=== PATIENT | male | born 1945 | race Caucasian/White ===

== ENCOUNTER 2018-10-14 14:15 | Outpatient (CLI) | payer OTHER | END 2018-10-14 14:30 | disposition home or self-care (01) | LOC: RAD 14:15 | DX: S83.511A Sprain of anterior cruciate ligament of right knee, initial encounter (principal); M25.561 Pain in right knee; M25.562 Pain in left knee ==

== ENCOUNTER 2019-05-30 12:00 | Outpatient (CLI) | payer OTHER | END 2019-05-30 12:08 | disposition home or self-care (01) | LOC: RAD 12:00 | DX: I11.9 Hypertensive heart disease without heart failure (principal) ==

== ENCOUNTER 2019-06-12 16:29 | Emergency (ER) | payer OTHER ==
[~2019-06-12] VITALS: Ht 170.2 cm; Wt 74.4 kg
[2019-06-12] MEDS ORDERED: PROPAFENONE (17:13)
[2019-06-12] MEDS ORDERED: TRILIPIX45 MG (17:13)
[2019-06-12] MEDS ORDERED: ATACAND32 MG (17:13)
[2019-06-12] MEDS ORDERED: [UNRECOGNIZED DRUG - OTHER] (17:13)
[2019-06-12] MEDS ORDERED: TOPROL XL25 M1 (17:13)
[2019-06-12] MEDS ORDERED: TAMS0.4C (17:14)
[2019-06-12] MEDS ORDERED: SYNTHROID75 MCG (17:14)
== END 2019-06-12 18:11 | disposition home or self-care (01) ==
LOC: ER 16:29
DX: S30.871A Other superficial bite of abdominal wall, initial encounter (principal); W54.0XXA Bitten by dog, initial encounter; Y93.89 Activity, other specified; Y92.89 Other specified places as the place of occurrence of the external cause; Y99.8 Other external cause status

== ENCOUNTER → 2019-06-29 | Outpatient (CLI) | payer OTHER ==
[~2019-06-29] MED LIST: ATACAND32 MG; PROPAFENONE; SYNTHROID75 MCG; TAMS0.4C; TOPROL XL25 M1; TRILIPIX45 MG; [UNRECOGNIZED DRUG - OTHER]
== END | disposition home or self-care (01) ==
LOC: RAD 15:29
DX: I10 Essential (primary) hypertension (principal)

== ENCOUNTER 2021-08-30 13:05 | Outpatient (CLI) | payer OTHER | END 2021-08-30 13:09 | disposition home or self-care (01) | LOC: SONOGRAMA 13:05 | PROVIDERS: ATTEND Internal Medicine | DX: M17.11 Unilateral primary osteoarthritis, right knee (principal); M25.511 Pain in right shoulder ==

== ENCOUNTER → 2021-10-10 | Outpatient (CLI) | payer OTHER | END | disposition home or self-care (01) | LOC: SONOGRAMA 14:11 | DX: S76.012A Strain of muscle, fascia and tendon of left hip, initial encounter (principal); M70.72 Other bursitis of hip, left hip; M16.12 Unilateral primary osteoarthritis, left hip ==